=== PATIENT | male | born 1965 | race Caucasian/White ===

== ENCOUNTER 2017-06-14 11:55 | Day surgery (SDC) | payer MEDICARE, OTHER ==
[~2017-06-14] VITALS: Ht 175.3 cm; Wt 215.0 kg
[~2017-06-14 11:55] MED LIST: CARVEDILOL6.25 MG PO; FUROSEMIDE40 MG PO; LEVOTHYROXINE50 MCG PO; LISINOPRIL5 MG PO
--- NOTE | 2017-06-14 15:42 | NUR ---
06/14/17 1541 Deisi Templeton 1532-PATIENT ARRIVED TO PACU ON CPAP AWAKE DENIES PAIN OR NAUSEA. DENIES PAIN OR NAUSEA. PASSING FLATUS. ABDOMEN ROUND, OBESE SOFT. CPAP TAKEN OFF AND RA O2 SAT 95% RR EVEN. SB/SR WITH PEAKED TWAVE.
--- NOTE | 2017-06-15 07:57 | OR ---
[facility] [address], [place] [address] Signed DATE OF OPERATION: 06/14/2017 SURGEON: Suze Corona MD PREOPERATIVE DIAGNOSIS: Guaiac-positive stool. POSTOPERATIVE DIAGNOSES: 1. Minimal to moderate sigmoid diverticulosis. 2. Internal anal skin tags x2. 3. Minimal internal hemorrhoids. PROCEDURE: Colonoscopy without biopsy. ESTIMATED BLOOD LOSS: None. INDICATIONS: Iván is a 52-year-old gentleman with a body mass index of 71 and a history of asthma and obstructive sleep apnea, requiring CPAP. He had actually been asked to see me because of guaiac-positive stool. He gives no family history of colon cancer or polyps. He says he has no lower GI complaints. He has never had a previous colonoscopy. In the office, I gave Iván a pamphlet on colonoscopy and we looked at that together along with the risks including, but not limited to, gas bloating, crampy abdominal pain, bleeding, perforation, requiring surgery, and missed diagnosis. We also discussed the need for IV conscious sedation. Given his medical situation, we asked that an anesthesia provider help us with increased monitoring and sedation with propofol. I am not sure we would be able to do it in any other way and we asked Iván to bring his CPAP mask and machine with him and we utilized that during our procedure. He had expressed understanding and wished to proceed. PROCEDURE NOTE: Iván was taken into our endoscopy suite and placed in the left lateral decubitus position. We utilized his CPAP machine from home. He was given IV sedation with propofol per our nurse checkering machine operator. A digital rectal exam was performed and this was unremarkable. The adult colonoscope was introduced and advanced all around into the cecum under direct visualization of the camera without difficulty. His prep was average. The scope was slowly withdrawn. We saw diverticula in the sigmoid colon. They were moderate in size, minimal to moderate in number, and scattered about. The Electronically Signed By: SUZE CORONA MD 06/15/17 0757 PATIENT NAME: IVÁN LENTZ OPERATIVE REPORT DATE OF : 63 REPORT #: [id number] PHYSICIAN: SUZE CORONA MD PCP: TEMO VILLATORO MD REPORT IS CONFIDENTIAL AND NOT TO BE RELEASED WITHOUT AUTHORIZATION [facility] [address], [place] [address] Signed rectum itself was unremarkable. Upon retroflexion of the scope, he had a couple of tiny internal anal skin tags. He has some pretty small routine internal hemorrhoid columns. After this, the gas was suctioned out and the colonoscope removed. Iván tolerated the procedure quite well. RECOMMENDATIONS: Iván can follow up in 10 years for repeat colonoscopy. MD ANAHI Hitchcock/JUAN JL /[id number] cc: MD Suze Live MD Copies: TEMO VILLATORO MD, ANDREW L MD ~ Electronically Signed By: SUZE CORONA MD 06/15/17 0757 PATIENT NAME: IVÁN LENTZ KRISTAN OPERATIVE REPORT DATE OF : 63 REPORT #: [id number] PHYSICIAN: SUZE CORONA MD PCP: TEMO VILLATORO MD REPORT IS CONFIDENTIAL AND NOT TO BE RELEASED WITHOUT AUTHORIZATION
== END 2017-06-14 16:08 | disposition home or self-care (01) ==
LOC: DS 11:55 → OPS 11:55
PROVIDERS: Colon & Rectal Surgery
PROC: 0DJD8ZZ Inspection of Lower Intestinal Tract, Via Natural or Artificial Opening Endoscopic (ICD-10-PCS; principal; 2017-06-14 12:45)
DX: K64.8 Other hemorrhoids (principal); K64.4 Residual hemorrhoidal skin tags; K57.30 Diverticulosis of large intestine without perforation or abscess without bleeding; J45.909 Unspecified asthma, uncomplicated; G47.33 Obstructive sleep apnea (adult) (pediatric); G25.81 Restless legs syndrome; I10 Essential (primary) hypertension; K76.0 Fatty (change of) liver, not elsewhere classified; E66.9 Obesity, unspecified; E03.9 Hypothyroidism, unspecified; F17.220 Nicotine dependence, chewing tobacco, uncomplicated; Z68.45 Body mass index [BMI] 70 or greater, adult; Z98.890 Other specified postprocedural states
CPT/HCPCS: J2704; J7120

== ENCOUNTER 2020-09-04 12:06 | Inpatient (IN) | payer MEDICARE, OTHER ==
[~2020-09-04] VITALS: Ht 175.3 cm; Wt 227.7 kg
[2020-09-04] MEDS ORDERED: TORSEMIDE20 MG PO (12:22)
[2020-09-04] MEDS ORDERED: LEVOTHYROXINE137 MCG PO (12:23)
[2020-09-04] MEDS ORDERED: HYDRALAZINE HCL50 MG PO (12:23)
[2020-09-04] MEDS ORDERED: CHLORTHALIDONE25 MG PO (12:23)
[2020-09-04] MEDS ORDERED: AMLODIPINE BESY10 MG PO (12:23)
[2020-09-04] MEDS ORDERED: LEVOTHYROXINE125 MCG PO (12:24)
[2020-09-04] MEDS ORDERED: POTASSIUM CHLO20 ME1 PO (13:25)
[2020-09-04] MEDS ORDERED: LISINOPRIL40 MG PO (13:26)
--- NOTE | 2020-09-04 16:05 | NUR ---
New admit to the floor from ED. Patient arrived alert and oriented x4. Patient reports sob with activity. Vital signs are stable at this time, oxygen 96% on room air. Oriented patient to room and call light. Dinner order placed. Patient provided with fresh water. Personal supplies and call light within reach.
--- NOTE | 2020-09-04 16:34 | NUR ---
Patient reports he is seen twice per week here at this hospital in day surgery for wound therapy. Consent obtained to take pictures of wounds on lower extremeties. Consent placed in chart. Bilat lower extremeties have generalized swelling. Redness noted to left leg. Manuel wrap removed from right leg; open wounds noted-purulant, foul smelling drainage present. Bilat pedal pulses present. Left lateral lower leg has a closed wound that appears to be healing. Wound care consult ordered by provider.
--- NOTE | 2020-09-04 17:21 | NUR ---
MED REC COMPLETE
--- NOTE | 2020-09-04 19:00 | NUR ---
SHIFT REPORT RECEIVED FROM [facility] SHY BEDOYA AT BEDSIDE, pt AWAKE AND RESTING IN BED. CELLULITIS OUTLINED EARLIER ON [facility], PER REPORT, BLE YING WRAPS REMOVED WHEN PHOTOS TAKEN. BLE ELEVATED WITH PILLOWS AT THIS TIME, NO FURTHER NEEDS. CALL LIGHT IN REACH.
--- NOTE | 2020-09-04 19:30 | NUR ---
PATIENT AWAKE IN BED, VITALS AND I&OS CHARTED. FRESH ICE WATER PROVIDED, CALL LIGHT IN REACH, NO OTHER NEEDS AT THIS TIME
--- NOTE | 2020-09-04 20:15 | NUR ---
IN TO ASSIST PT WITH URINE SPILL, FLOOR CLEANED UP, NO FURTHER NEEDS AT THIS TIME
--- NOTE | 2020-09-04 20:22 | NUR ---
ON PHONE WITH DR ALBA, pt BROUGHT HOME CPAP MACHINE. PER MADDISON RENDON FOR pt TO USE HOME CPAP MACHINE. BLE ULCERS OPEN TO AIR, DR ALBA MADE AWARE OF ULCERS AND GIVEN BRIEF DISCRIPTION, PHOTOS ALSO IN CHART-TAKEN EARLIER BY DAYSHIFT. PER MADDISON RENDON TO PLACE NONADHERENT DRESSING FOR THE NIGHT UNTIL ASSESSED BY WOUND RN.
--- NOTE | 2020-09-04 20:36 | EKG ---
[facility] [address] [facility] [place] [address] Signed Sinus bradycardia with premature atrial complexes Nonspecific intraventricular block Abnormal ECG When compared with ECG of 07-JUN-2017 09:19, premature atrial complexes are now present Confirmed by SHANIQUE ALBA DO ([id number]) on 09/04/2020 8:36:25 PM Electronically Signed By: SHANIQUE ALBA DO 09/04/202035 PATIENT NAME: TORJAMES KRISTAN Electrocardiogram DATE OF : 63 PHYSICIAN: SHANIQUE ALBA DO REPORT #: [id number] REPORT IS CONFIDENTIAL AND NOT TO BE RELEASED WITHOUT AUTHORIZATION
--- NOTE | 2020-09-04 21:45 | NUR ---
pt MOVED FROM ROOM #122 TO ROOM #116 BECAUSE OF HOME CPAP MACHINE. pt NOW ORIENTED TO THIS ROOM, BELONGINGS ALSO WITH pt. CALL LIGHT IN REACH.
--- NOTE | 2020-09-04 21:55 | NUR ---
ASSESSMENT COMPLETE, SCHEDULED MEDS GIVEN (SEE EMAR). IV SITE X2 WNL AND FLUSHES EASILY. IV FLUIDS INFUSING PER MD ORDERS. A/OX4, INTERACTIVE WITH STAFF, HOME CPAP MACHINE REVIEWED BY RT HUNTER AND READY FOR USE. VSS, APICAL HR 55-56, DR ALBA AWARE AND OKAY TO GIVE SCHEDULED HYDRALAZINE. NO CHANGE IN REDDNESS, PREVIOUSLY OUTLINED ON DAYSHIFT. OPEN ULCERS WITH SMALL AMOUNT YELLOW DRAINAGE NOTED TO LLE-LATERAL AND EXTENDING TO POSTERIOR WELL OPEN ULCERS ON THE RLE-ANTERIOR EXTENDING TO LATERAL. [employer] ARCHITECT CONSULT ALREADY IN PLACE, PER SHIFT REPORT, [employer] ARCHITECT MAYA TO BE NOTIFIED IN MORNING FOR CONSULT ASSESSMENT. OPEN ULCERS COVERED AT THIS TIME WITH NONADHERENT PADS AND LIGHTLY WRAPPED WITH YING WRAP. MD AWARE. SHY WICK ASSISTED WITH DRESSING. NO FURTHER NEEDS, CALL LIGHT IN REACH.
--- NOTE | 2020-09-04 22:00 | NUR ---
VITALS, I&Os DONE POST ROOM MOVE, ICE WATER GIVEN, NO FURTHER NEEDS
--- NOTE | 2020-09-04 22:14 | NUR ---
ASSISTED JUAN CARLOS BEGUM TO PLACE NONADHERANT PADS OVER OPEN WOUNDS ON BILAT LE'S THEN WRAP WITH YING WRAPS. PICTURES PREVIOUSLY TAKEN DURING DAYSHIFT AND PLACED IN CHART. RLE HAS MULTIPLE OPEN ULCERS ANTERIOR EXTENDING TO LATERAL SIDE OF LEG WITH YELLOW DRAINAGE. LLE LATERAL TO POSTERIOR ALSO HAS OPEN ULCERS WITH YELLOW DRAINAGE. ALL OPEN AREAS ARE NOW COVERED.
--- NOTE | 2020-09-05 00:23 | NUR ---
pt RESTING IN BED WITH EYES CLOSED, RR EVEN AND UNLABORED. NO DISTRESS NOTED. HOME CPAP MACHINE IN PLACE, CALL LIGHT IN REACH.
--- NOTE | 2020-09-05 01:16 | NUR ---
SCHEDULED VANCO INFUSING PER MD ORDERS, SITE WNL AND FLUSHES EASILY. ASSESSMENT COMPLETE, NO NEW CHANGES OR CONCERNS. REDDNESS TO LLE REMAINS UNCHANGED AND WITHIN OUTLINE. BLE WOUNDS REMAIN COVERED FROM EARLIER IN SHIFT. URINAL EMPTIED, NO FURTHER NEEDS. CALL LIGHT IN REACH.
--- NOTE | 2020-09-05 04:14 | NUR ---
IN TO EMPTY URINE FOR PT, NO FURTHER NEEDS
--- NOTE | 2020-09-05 04:30 | NUR ---
HOME CPAP MACHINE IN PLACE, RR EVEN AND UNLABORED. NO DISTRESS NOTED. CALL LIGHT REMAINS IN REACH.
--- NOTE | 2020-09-05 05:30 | NUR ---
HOME CPAP MACHINE OFF AT THIS TIME, VS AND I&O'S COMPLETE. pt SBA TO BATHROOM TO VOID AND SMALL BM. BACK TO BED, TOLERATED WELL. IV ABX INFUSING PER MD ORDERS, SITE WNL. NO FURTHER NEEDS, CALL LIGHT IN REACH.
--- NOTE | 2020-09-05 07:30 | NUR ---
Report received from Tereza BEGUM. Pt resting in bed, alert and oriented and states no current needs. Reviewed plan of care, pt agreeable. Call light in reach.
--- NOTE | 2020-09-05 09:05 | NUR ---
Scheduled medications administered. Assessment complete. Legs unwrapped and visualized, noted redness/warm to touch on BLE. Ulcers BODY SANDER at this time for MD assessment. Pt reports no pain or needs. Alert and oriented, on room air. Pt appears to have increased WOB but states this is his baseline and does not feel SOB. Will continue to monitor.
--- NOTE | 2020-09-05 10:36 | NUR ---
PATIENT IN BED RESTING. AM CARE DONE THIS MORNING. RN DID VITALS. I&O'S CHARTED. FRESH WATER GIVEN. CALL LIGHT IN REACH. NO FURTHER NEEDS AT THIS TIME.
--- NOTE | 2020-09-05 11:21 | NUR ---
IV pump alarming, error resolved. Pt resting in bed, even and unlabored respirations, no needs at this time.
--- NOTE | 2020-09-05 13:09 | NUR ---
PT IS SEEN FOR A WOUND CONSULT OF HIS BLE AND VASCUALR WOUNDS. THE PT IS KNOWN TO ME AN OUPATIENT, SEEN WEEKLY FOR DRESSING CHAGNES. PT WAS LAST SEEN ON MONDAY WHERE HE WAS HAVING RESPIRATORY/INFECTION TYPE SYMPTOMS. HE WAS STRONGLY ENCOURAGED TO GO TO THE ED. HE DID END UP COMING IN AND WAS ADMITTED FOR CELLULITIS OF THE RIGHT LOWER EXTREMITY. THE WOUNDS ARE COVERED IN A LAYER OF SLOUGH. THE WOUNDS ARE DRESSED PER ORDERS ON AN OUTPATIENT BASIS. COVERING THE WOUNDS WITH IODOSORB, HYDROFERA BLUE, BARRIER OINTMENT, AND MULTILAYER COMPRESSION DRESSINGS. THE PT TOLERATES THIS PROCEDURE WELL WITHOUT ISSUE. THE DRESSINGS SHOULD BE CHANGED EVERY 3-4 DAYS OR NEEDED FOR THE DRESSING FALLING DOWN OR BECOMING SOILED.
--- NOTE | 2020-09-05 13:18 | NUR ---
Scheduled ABX infusing. Pt has no needs. Call light in reach
--- NOTE | 2020-09-05 14:07 | NUR ---
PATIENT IN BED RESTING. VITALS AND I&O'S CHARTED. CALL LIGHT IN REACH. NO FURTHER NEEDS AT THIS TIME.
--- NOTE | 2020-09-05 14:30 | NUR ---
REPORT RECEIVED FROM MAGDALENA BEGUM. THIS NURSE TO TAKE OVER CARES. ROUNDED ON PT. PT SITTING AT EDGE OF BED. DENEIS NEEDS. CALL LIGHT IN REACH.
--- NOTE | 2020-09-05 19:25 | NUR ---
SHIFT REPORT RECEIVED FROM DAYSHIFT SHY HAYES AT BEDSIDE, pt AWAKE AND SITTING ON EDGE OF BED. REPORTS FEELING HOT AND REQUESTING FAN, NO FURTHER NEEDS. CALL LIGHT IN REACH. IV FLUIDS INFUSING PER MD ORDERS, SITE WNL.
--- NOTE | 2020-09-05 20:32 | NUR ---
ASSESSMENT COMPLETE, SCHEDULED MEDS GIVEN (SEE EMAR). VSS, pt ON RA AND DENIES SOB. HOME CPAP MACHINE IN ROOM. DRESSINGS TO BLE C/D/I, UNABLE TO ASSESS PEDAL PULSES D/T DRESSINGS. CMS INTACT, pt DENIES NUMBNESS AND TINGLING AND BRISK CAP REFILL NOTED. REDDNESS TO LLE APPEARS TO BE RECEDING, WILL MONITOR FOR CHANGES. FRESH WATER AND JUICE PROVIDED, NO FURTHER NEEDS. CALL LIGHT IN REACH.
--- NOTE | 2020-09-05 22:08 | NUR ---
SCHEDULED IV ABX INFUSING PER MD ORDERS, SITE WNL. URINAL EMPTIED, NO FURTHER NEEDS. CALL LIGHT IN REACH.
--- NOTE | 2020-09-06 00:58 | NUR ---
scheduled iv vanco infusing per md orders, iv site wnl and flushes easily. assessment complete, no new changes or concerns. dressings remain c/d/i, cms intact. pt reports ble dressings are comfortable and denies being too tight. unable to assess pedal pulses d/t dressings, cap refill brisk and wnl. no change to reddness. no further needs, call light in reach.
--- NOTE | 2020-09-06 02:10 | NUR ---
CALL LIGHT ANSWERED, PUMP ALARMING. ERROR RESOLVED. IV FLUIDS INFUSING PER MD ORDERS, SITE WNL. NO ADDITIOANL NEEDS, HOME CPAP MACHINE IN PLACE. CALL LIGHT IN REACH.
--- NOTE | 2020-09-06 04:49 | NUR ---
pt RESTING IN BED WITH EYES CLOSED, RR EVEN AND UNLABORED. HOME CPAP MACHINE IN PLACE, CALL LIGHT IN REACH.
--- NOTE | 2020-09-06 05:45 | NUR ---
VSS AND I&OS COMPLETE. NEW BAG IV FLUIDS HUNG AND INFUSING PER MD ORDERS, SITE WNL. RIGHT HAND IV REMOVED D/T LEAKING, CATHETER TIP INTACT. NO FURTHER NEEDS, CALL LIGHT IN REACH.
--- NOTE | 2020-09-06 07:12 | NUR ---
PT AWAKE AND INTERACTIVE AT TIME OF BEDSIDE REPORT. DENIES NEEDS OR DISCOMFORTS
--- NOTE | 2020-09-06 09:30 | NUR ---
PT COMPLETES BREAKFAST REMAINS IN BED AT THIS TIME ASKING WHEN THE DOCTOR WILL BE IN. PT STATES HE THINKS HE IS BEING DC'D TODAY AND IS LOOKING FORWARD TO IT.
[2020-09-06] MEDS ORDERED: AMOXICILLIN875 MG PO (09:35)
--- NOTE | 2020-09-06 10:02 | NUR ---
SALINE LOCKED PT TO AMBULATE TO BATHROOM INDEPENDENTLY. BEDBATH WASHES PROVIDED. PT DENEIS NEED FOR HELP. BED LINENS CHANGED.
== END 2020-09-06 11:40 | disposition home or self-care (01) | DRG 872 ==
LOC: ED 12:06 → MS 14:55
PROVIDERS: ADMIT Student in an Organized Health Care Education/Training Program; ATTEND Student in an Organized Health Care Education/Training Program
DX: A41.9 Sepsis, unspecified organism (principal); L03.116 Cellulitis of left lower limb; N17.9 Acute kidney failure, unspecified; Z68.45 Body mass index [BMI] 70 or greater, adult; Z20.822 Contact with and (suspected) exposure to COVID-19; R65.20 Severe sepsis without septic shock; I10 Essential (primary) hypertension; G47.33 Obstructive sleep apnea (adult) (pediatric); E66.01 Morbid (severe) obesity due to excess calories; E03.9 Hypothyroidism, unspecified; Z79.899 Other long term (current) drug therapy
CPT/HCPCS: 36415; 71045; 80048; 80053; 81001; 83605; 83735; 85025; 93005; 93010; 96365; 96366; 96375; 99285-25; C9803; J0690; J0692; J0696; J1650; J3370; J7060; J7121; U0003

== ENCOUNTER 2020-09-12 21:24 | Emergency (ER) | payer MEDICARE, OTHER ==
[~2020-09-12] VITALS: Ht 175.3 cm; Wt 238.6 kg
[~2020-09-12 21:24] MED LIST changes: +AMLODIPINE BESY10 MG PO; +AMOXICILLIN875 MG PO; +CHLORTHALIDONE25 MG PO; +HYDRALAZINE HCL50 MG PO; +LEVOTHYROXINE125 MCG PO; +LEVOTHYROXINE137 MCG PO; +LISINOPRIL40 MG PO; +POTASSIUM CHLO20 ME1 PO; +TORSEMIDE20 MG PO
--- OUTSIDE RECORDS SUMMARY | 2020-09-12 21:40 | XMS ---
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 Gino has no Care Guidelines for this patient. [facility]12 MO.) [facility] NOTE: Visits indicate total known visits. ED/C VISIT TRACKING (12 MO.) [facility]12[facility]2020 [facility] COMPLAINT: - RASH 09/04/2020 12:06 [facility] TYPE: Emergency COMPLAINT: - SOB/TEMP INPATIENT VISIT TRACKING (12 MO.) 09/04/2020 14:55 [facility] OR TYPE: Medical Surgical COMPLAINT: - LEFT LEG CELLULITIS DIAGNOSES: - Essential (primary) hypertension - Other nursing home (current) drug therapy - Hypothyroidism, unspecified - Essential (primary) hypertension - Obstructive sleep apnea (adult) (pediatric) - Body mass index [BMI] 70 or greater, adult - Hypothyroidism, unspecified - Severe sepsis without septic shock - Acute kidney failure, unspecified - Cellulitis of left lower limb - Morbid (severe) obesity due to excess calories - Other nursing home (current) drug therapy - Obstructive sleep apnea (adult) (pediatric) - Severe sepsis without septic shock - Acute kidney failure, unspecified - Morbid (severe) obesity due to excess calories - Sepsis, unspecified organism - Cellulitis of left lower limb [email or web address]
[2020-09-12] MEDS ORDERED: CLEOCIN HCL300 MG PO (22:33)
[2020-09-12] MEDS ORDERED: HYDROXYZINE HCL25 MG PO (22:33)
== END 2020-09-12 22:59 | disposition home or self-care (01) ==
LOC: ED 21:24
DX: L27.0 Generalized skin eruption due to drugs and medicaments taken internally (principal); T36.0X5A Adverse effect of penicillins, initial encounter; I10 Essential (primary) hypertension; G47.30 Sleep apnea, unspecified; Z88.0 Allergy status to penicillin; Z79.899 Other long term (current) drug therapy
CPT/HCPCS: 99282

== ENCOUNTER 2023-07-27 05:40 | Day surgery (SDC) | payer MEDICARE, OTHER ==
[2023-07-19 14:27] VITALS: BP 136/57
[~2023-07-27] VITALS: Ht 175.3 cm; Wt 195.0 kg
[~2023-07-27 05:40] MED LIST changes: +CLEOCIN HCL300 MG PO; +HAIR, SKIN & N1 EACH PO; +HYDROXYZINE HCL25 MG PO; +MIDAZOLAM HCL 5 MG/5 ML VIAL IV PRN; +OZEMPIC1 MG/0.71; +VIT D3-VIT K21 EACH PO; +fentaNYL citrate 100 MCG/2 ML VIAL IV PRN
[2023-07-27 05:55] VITALS: BP 156/41
[2023-07-27] MEDS ORDERED: LIDOCAINE HCL 1% 5 ML SDV INJ ONE (07:00)
[2023-07-27] MEDS ORDERED: IBLOOD GLUCOSE TEST STRIP 1 EA TEST VI PRN (07:00)
[2023-07-27] MEDS ORDERED: LACTATED RINGER'S 1,000 ML IV SCH (07:00)
--- NOTE | 2023-07-27 07:13 | NUR ---
VISITED DURING SPIRITUAL CARE ROUNDS. PT ACCOMPANIED BY FAMILY WHO EXHIBITED STRONG RELATIONAL SUPPORTS. I PROVIDED SUPPORTIVE PRESENCE, HOSPITALITY, PRAYER. FAMILY EXPRESSED APPRECIATION.
[2023-07-27] MEDS ORDERED: LIDOCAINE HCL 2% 5 ML SDV ONE (07:18)
[2023-07-27] MEDS ORDERED: propofoL 200 MG/20 ML VIAL ONE (07:18)
[2023-07-27] MEDS ORDERED: KETAMINE in NS 50 MG/5 ML SYR ONE (07:23)
--- NOTE | 2023-07-27 08:10 | NUR ---
07/27/23 0810 Will Connolly 0757: PT ARRIVED TO PACU VIA STRETCER ON LEFT LATERAL SIDE. PT AWAKE AND TALKING AT THE TIME OF ARRIVAL. PT ON 6L VIA MASK UPON ARRIVAL. PT TURNED TO ROOM AIR @ 0758 WHILE ROUGHER FOR CEMENT STILL AT BEDSIDE. PT DENIES PAIN OR NAUSEA. PTS ABDOMEN SOFT. PASSING GAS ON ARRIVAL TO PACU.
[2023-07-27 08:33] VITALS: BP 125/53
--- NOTE | 2023-07-27 09:52 | OR ---
[facility] [address], [place] [address] Signed DATE OF OPERATION: 07/27/2023 SURGEON: Suze Corona MD PREOPERATIVE DIAGNOSES: 1. Blood associated with bowel movements (change in bowel habits). 2. Anemia. 3. Internal hemorrhoids. 4. Internal anal skin tags. 5. Diverticulosis. POSTOPERATIVE DIAGNOSES: 1. Minimal internal hemorrhoids. 2. Minimal internal anal skin tags. 3. Jkpmrwk-cv-[id number] sigmoid diverticulosis. PROCEDURE: Colonoscopy without biopsy. ESTIMATED BLOOD LOSS: None. INDICATIONS: Iván is a 58-year-old morbidly obese gentleman with a body mass index of 71. He has cardiomegaly with pulmonary hypertension as well. He came to us in 2018 at the age of 52 because of guaiac-positive stool. This was his initial colonoscopy. He had internal hemorrhoids along with associated anal skin tags. He had diverticulosis. He had been asked to follow up in 10 years based on his future health. He is now seen some blood associated with his bowel movements. He said he is not constipated. He feels this is a change in bowel habits for him. He has also developed a little anemia last summer, where his hemoglobin dropped as low as 9.4 and the mean cell volume 97. He has been on iron and vitamin C and is now up to 10 and 94 following 1-1/2 months of therapy. We know his renal function has worsened, where his BUN and creatinine were 49 and 1.96, now up to 52 and 2.15. Given his change, he had asked to see me for a followup colonoscopy. We finally were able to track down his most recent cardiac note, which confirms his cardiomegaly and pulmonary hypertension. I explained to Iván that he represents increased risk particularly at our small critical access hospital. He knows that beyond basic endoscopy we would not be able to help him in our small hospital. I gave him a brochure on colonoscopy. He recalls the nature of the test. There is risk including, but not limited to gas bloating, crampy abdominal pain, bleeding, perforation requiring Electronically Signed By: SUZE CORONA MD 07/27/23 0952 PATIENT NAME: VIÁN LENTZ OPERATIVE REPORT DATE OF : 63 REPORT #: [id number] PHYSICIAN: SUZE CORONA MD PCP: ARIEL MILLER MD REPORT IS CONFIDENTIAL AND NOT TO BE RELEASED WITHOUT AUTHORIZATION [facility] [address], [place] [address] Signed surgery, and missed diagnosis. He is also at increased risk from particularly his obesity and his cardiac and renal functions. We would also reviewed the written instructions for bowel prep line by line. We also reviewed the need for monitored anesthesia care given his medical history. He had expressed understanding and wished to proceed. PROCEDURE NOTE: Iván was taken into our endoscopy suite and placed in the left lateral decubitus position. He was given monitored anesthesia care with propofol infusion per our nurse veneer redrier. A digital rectal exam was performed. He has excellent perianal hygiene. There were no external hemorrhoids. He had good sphincter tone. There were no masses. He is a very large man, I could not reach the prostate gland. The adult colonoscope was introduced and advanced under direct visualization of camera right next to the cecum. He had a little bit of particulate stool matter, I could not quite suction out completely. We could easily see the ileocecal valve. The scope was then slowly withdrawn. We found his diverticula in the sigmoid colon. They were moderate in size, [id number] in number and scattered about. There were no polyps. The rectum was unremarkable. Upon retroflexion of scope again he has minimal internal hemorrhoid columns with associated small skin tags. After this, the gas was suctioned out. The colonoscope removed. Iván tolerated the procedure quite well. RECOMMENDATIONS: Iván can follow up in 10 years for routine screening colonoscopy based on his health. He will follow up with his primary care provider for his ongoing anemia evaluation. He appears to be correcting with his iron therapy. One could always consider an upper endoscopy if necessary. Suze Corona MD ALB/MODL /[id number] cc: MD Suze Orosco MD Electronically Signed By: SUZE CORONA MD 07/27/23 0952 PATIENT NAME: IVÁN LENTZ OPERATIVE REPORT DATE OF : 63 REPORT #: [id number] PHYSICIAN: SUZE CORONA MD PCP: ARIEL MILLER MD REPORT IS CONFIDENTIAL AND NOT TO BE RELEASED WITHOUT AUTHORIZATION [address] [address] Signed Ariel Miller MD Patient Chart Copies: BOB VALENTINE MD, ANDREW L MD TOWNSLEY, MALCOLM MD ~ Electronically Signed By: SUZE CORONA MD 07/27/23 0952 PATIENT NAME: IVÁN LENTZ OPERATIVE REPORT DATE OF : 63 REPORT #: [id number] PHYSICIAN: SUZE CORONA MD PCP: ARIEL MILLER MD REPORT IS CONFIDENTIAL AND NOT TO BE RELEASED WITHOUT AUTHORIZATION
== END 2023-07-27 08:32 | disposition home or self-care (01) ==
LOC: OPS 05:40 → DS 05:40 → OPS 07:30 → DS 07:30 → OPS 08:32
PROVIDERS: ATTEND Colon & Rectal Surgery
PROC: 0DJD8ZZ Inspection of Lower Intestinal Tract, Via Natural or Artificial Opening Endoscopic (ICD-10-PCS; principal; 2023-07-27 07:30)
DX: K57.31 Diverticulosis of large intestine without perforation or abscess with bleeding (principal); K64.4 Residual hemorrhoidal skin tags; K64.8 Other hemorrhoids; E03.9 Hypothyroidism, unspecified; G47.33 Obstructive sleep apnea (adult) (pediatric); I12.9 Hypertensive chronic kidney disease with stage 1 through stage 4 chronic kidney disease, or unspecified chronic kidney disease; E11.22 Type 2 diabetes mellitus with diabetic chronic kidney disease; N18.31 Chronic kidney disease, stage 3a; E78.2 Mixed hyperlipidemia; Z79.890 Hormone replacement therapy; Z79.899 Other long term (current) drug therapy
CPT/HCPCS: J2001; J2704; J3490; J7121